=== PATIENT | male | born 1950 | race American Indian/Alaskan Native ===

== ENCOUNTER 2018-05-12 14:34 | Emergency (ER) | payer MEDICARE ==
[2018-05-12 14:44] VITALS: BP 102/59
[2018-05-12 16:12] LABS: Hematocrit 39.2 % (35.5-45.6); Hemoglobin 12.5 gm/dl (11.8-15.2); Mean Corpuscular HGB Conc 32 % (32-34); Mean Corpuscular Volume 71 fl (84-94); Platelet Count 247 K/mm3 (140-440); Red Blood Count 5.55 M/mm3 (3.65-5.03)
[2018-05-12 16:15] LABS: Mean Corpuscular Hemoglobin 23 pg (28-32)
[2018-05-12 16:21] LABS: Calcium 9.1 mg/dL (8.4-10.2)
== END 2018-05-12 15:37 | disposition left against medical advice (07) ==
LOC: ED 14:34
DX: R42 Dizziness and giddiness (principal); Z53.21 Procedure and treatment not carried out due to patient leaving prior to being seen by health care provider
CPT/HCPCS: 36415; 80048; 85027; 93005; 93010

== ENCOUNTER 2018-05-21 12:18 | Outpatient (CLI) | payer MEDICARE ==
--- NOTE | 2018-05-21 14:08 | XRay Report ---
ROUTINE CHEST, TWO VIEWS: HISTORY: Weight loss. The trachea, heart, mediastinal contour, lung roche and bony thorax are unremarkable. Mild thoracic spondylosis is noted. IMPRESSION: Unremarkable chest x-ray.
== END 2018-05-21 12:19 | disposition home or self-care (01) ==
LOC: XRAY 12:18
PROVIDERS: ATTEND Internal Medicine Gastroenterology
DX: R63.4 Abnormal weight loss (principal); M48.34 Traumatic spondylopathy, thoracic region; I10 Essential (primary) hypertension
CPT/HCPCS: 71046

== ENCOUNTER 2018-11-13 06:56 | Day surgery (SDC) | payer MEDICARE ==
--- NOTE | 2018-11-13 07:44 | Anesthesia Consultation ---
Anesthesia Consult and Med Hx Date of service: 11/13/18 - Airway Anesthetic Teeth Evaluation: Poor (multiple broken, missing teeth) ROM Head & Neck: Adequate Mental/Hyoid Distance: Adequate Mallampati Class: Class II Intubation Access Assessment: Probably Good - Pre-Operative Health Status ASA Pre-Surgery Classification: ASA3 Proposed Anesthetic Plan: MAC - Cardiovascular System Hx Hypertension: Yes Hx Coronary Artery Disease: No (cardiomyopathy EF 45-50%) - Endocrine Hx Renal Disease: Yes (CKD) Hx End Stage Renal Disease: No Hx Non-Insulin Dependent Diabetes: Yes
--- NOTE | 2018-11-13 07:45 | Anesthesia Day of Surgery ---
Anesthesia Day of Surgery - Day of Surgery Patient Examined: Yes Patient H&P Reviewed: Yes Patient is NPO: Yes Beta Blockers: Yes
[2018-11-13 08:00] LABS: Basophils # (Auto) 0.1 K/mm3 (0.0-0.1); Basophils % (Auto) 0.7 % (0.0-1.8); Eosinophils # (Auto) 0.2 K/mm3 (0.0-0.4); Hematocrit 43.2 % (35.5-45.6); Hemoglobin 13.7 gm/dl (11.8-15.2); Lymphocytes # (Auto) 1.9 K/mm3 (1.2-5.4); Lymphocytes % (Auto) 22.6 % (13.4-35.0); Mean Corpuscular HGB Conc 32 % (32-34); Mean Corpuscular Volume 70 fl (84-94); Monocytes % (Auto) 12.2 % (0.0-7.3); Platelet Count 218 K/mm3 (140-440); Red Blood Count 6.14 M/mm3 (3.65-5.03); Red Cell Distribution Width 18.7 % (13.2-15.2)
[2018-11-13] MEDS ORDERED: HURRICAINE ONE 20% TOPICAL SPRAY MM NR (08:00)
[2018-11-13] MEDS ORDERED: NACL 0.9% 500 ML 500 ML IV SCH (08:00)
[2018-11-13 08:11] LABS: INR 1.16 (0.87-1.13)
[2018-11-13 08:12] LABS: Partial Thromboplastin Time 33.5 Sec. (24.2-36.6)
[2018-11-13 08:17] LABS: Calcium 8.9 mg/dL (8.4-10.2)
[2018-11-13] MEDS ORDERED: DIPRIVAN 10 MG/ML IV ONE ×2 (08:22)
[2018-11-13] MEDS ORDERED: XYLOCAINE MPF 2% ONE (08:22)
[2018-11-13] MEDS ORDERED: VERSED IV ONE (08:33)
[2018-11-13] MEDS ORDERED: SUBLIMAZE ONE (08:34)
--- NOTE | 2018-11-13 09:15 | Short Stay Summary ---
Short Stay Documentation Date of service: 11/13/18 - History H&P: obtained from office - Allergies and Medications Current Medications: Allergies No Known Allergies Allergy (Verified 10/15/15 05:03) Home Medications Medication Instructions Recorded Confirmed Last Taken Type amLODIPine [Norvasc] 5 mg PO QDAY #30 tablet 04/15/17 11/13/18 11/12/18 Rx 5MG Carvedilol 25 mg PO QPM 11/13/18 11/13/18 11/12/18 History 25MG Carvedilol 50 mg PO QAM 11/13/18 11/13/18 11/12/18 History 25MG Furosemide [Lasix TAB] 40 mg PO DAILY 11/13/18 11/13/18 11/12/18 History 40MG Isosorbibe Dinit/Hydralazine 0.5 tab PO DAILY 11/13/18 11/13/18 11/12/18 History [Bidil Tablet] 0.5TAB Active Medications Benzocaine (Hurricaine One 20% Topical [place]) 3 spray MM PREOP NR Stop: 11/13/18 16:00 Last Admin: 11/13/18 08:48 Dose: 3 spray Documented by: Sodium Chloride (Nacl 0.9% 500 Ml) 500 mls @ 50 mls/hr IV DIRECT KARO Last Admin: 11/13/18 08:30 Dose: 50 mls/hr Documented by: - Physical exam General appearance: no acute distress Integumentary: no rash HEENT: Atraumatic Lungs: Clear to auscultation Breasts: deferred Heart: Regular rate Gastrointestinal: normal Male Genitourinary: deferred Female Genitourinary: deferred Rectal Exam: deferred Extremities: no ischemia Neurological: Normal gait - Brief post op/procedure progress note Date of procedure: 11/13/18 Pre-op diagnosis: Dilated RV and RA Post-op diagnosis: same Procedure: TOMMIE Anesthesia: MAC Findings: See report Surgeon: JOSE TAM Estimated blood loss: none Pathology: none Condition: stable - Hospital course Hospital course: Uneventful - Disposition Condition at discharge: Good Disposition: DC-01 TO HOME OR SELFCARE Short Stay Discharge Plan Activity: advance as tolerated Diet: low salt Follow up with: PRIMARY CARE, [Primary Care Provider] - 7 Days
[2018-11-13 10:46] VITALS: BP 180/109
== END 2018-11-13 12:08 | disposition home or self-care (01) ==
LOC: CATHLABREC 06:56 → EDSTATUS 07:30 → CATHLABREC 12:08
PROVIDERS: ATTEND Internal Medicine
DX: I08.3 Combined rheumatic disorders of mitral, aortic and tricuspid valves (principal); E11.22 Type 2 diabetes mellitus with diabetic chronic kidney disease; I13.0 Hypertensive heart and chronic kidney disease with heart failure and stage 1 through stage 4 chronic kidney disease, or unspecified chronic kidney disease; I50.20 Unspecified systolic (congestive) heart failure; N18.9 Chronic kidney disease, unspecified; I31.3 Pericardial effusion (noninflammatory); I42.9 Cardiomyopathy, unspecified; M19.90 Unspecified osteoarthritis, unspecified site; D64.9 Anemia, unspecified; Z79.01 Long term (current) use of anticoagulants; Z79.899 Other long term (current) drug therapy; Z83.3 Family history of diabetes mellitus; Z82.49 Family history of ischemic heart disease and other diseases of the circulatory system
CPT/HCPCS: 36415; 80048; 85025; 85610; 85730; 93312; 93320; 93325; J2704; J7040; J2250; J3010

== ENCOUNTER 2019-09-19 15:07 | Inpatient (IN) | payer MEDICARE ==
--- NOTE | 2019-09-19 16:02 | Event Note ---
ED Screening Note Date of service: 09/19/19 Time: 15:59 ED Screening Note: 69 y o male presents with difficulty breathing worsening x 2 weeks cc of burning with ua, diarhea PMH: HTN,DM, LIPid This initial assessment/diagnostic orders/clinical plan/treatment(s) is/are subject to change based on patients health status, clinical progression and re- assessment by fellow clinical providers in the ED. Further treatment and workup at subsequent clinical providers discretion. Patient/guardian urged not to elope from the ED as their condition may be serious if not clinically assessed and managed. Initial orders include: labs, main side ecal ua
--- NOTE | 2019-09-19 16:43 | XRay Report ---
CHEST 2 VIEWS INDICATION / CLINICAL INFORMATION: Dyspnea. COMPARISON: 05/21/2018 FINDINGS: SUPPORT DEVICES: None. HEART / MEDIASTINUM: No significant abnormality. LUNGS / PLEURA: Mild parenchymal opacification in the right lower lobe. No pneumothorax. ADDITIONAL FINDINGS: No significant additional findings. IMPRESSION: 1. Mild parenchymal opacity in the right lower lobe which could reflect developing pneumonia or atele ctasis. Signer Name: Otoniel Pierson MD Signed: 09/19/2019 4:39 PM Workstation Name: [id number]
[2019-09-19 17:22] LABS: Bilirubin,Urine NEG (Negative); Blood,Urine MOD (Negative); Color,Urine Amber (Yellow); Mucus,Urine FEW /HPF; RBC,Urine < 1.0 /HPF (0.0-6.0); Urobilinogen,Urine < 2.0 mg/dL (<2.0)
[2019-09-19 17:28] LABS: Hematocrit 41.2 % (35.5-45.6); Hemoglobin 13.4 gm/dl (11.8-15.2); Mean Corpuscular HGB Conc 33 % (32-34); Platelet Count 178 K/mm3 (140-440); Red Blood Count 6.02 M/mm3 (3.65-5.03)
[2019-09-19 17:33] LABS: Mean Corpuscular Volume 68 fl (84-94)
[2019-09-19 17:34] LABS: Red Cell Distribution Width 20.7 % (13.2-15.2)
[2019-09-19 17:40] LABS: INR 1.54 (0.87-1.13)
[2019-09-19 17:41] LABS: Partial Thromboplastin Time 30.7 Sec. (24.2-36.6)
[2019-09-19 17:45] LABS: Creatine Kinase MB 15.6 ng/mL (0.0-4.0)
[2019-09-19 17:48] LABS: Albumin 3.6 g/dL (3.9-5); Calcium 9.2 mg/dL (8.4-10.2)
[2019-09-19 18:38] LABS: Chol/HDL Ratio 2.03 %
[2019-09-19] MEDS ORDERED: cefTRIAXone/NS 1 GM/50 ML 1 GM/50 ML BAG IV ONE (18:53)
[2019-09-19] MEDS ORDERED: SODIUM CHLORIDE 0.9% 1000 ML IV SOLN IV ONE (18:53)
[2019-09-19] MEDS ORDERED: SODIUM CHLORIDE 0.9% 500 ML 500 ML IV ONE (19:00)
[2019-09-19 19:05] LABS: Anisocytosis 1+; Basophils % (Manual) 0 % (0.0-1.8); Eosinophils % (Manual) 0 % (0.0-4.3); Hypochromasia 1+; Total Cells Counted 100
--- NOTE | 2019-09-19 19:14 | Emergency Department Report ---
ED Shortness of Breath HPI - General Chief Complaint: Dyspnea/Respdistress Stated Complaint: DIFFICULTY BREATHING/DIARRHEA Time Seen by Provider: 09/19/19 18:50 Source: patient, old records reviewed Mode of arrival: Ambulatory Limitations: No Limitations - History of Present Illness Initial Comments: 69-year-old male with a past medical history of chronic renal insufficiency, CHF, diabetes, hypertension presents to the hospital complaining of shortness of breath and diarrhea. Shortness of breath 4 days. Positive dyspnea on exertion, orthopnea, and PND. Denies leg edema or calf tenderness. Patient recalls cough productive yellow phlegm last week which is since improving. Denies fever. Watery loose stools for the past one week with increased frequency. Mild dysuria today. Denies melena, hematochezia, hematemesis, chest pain, or abdominal pain. PMD: Dr. Zohra Garvey. [employer] on record with [facility] - Related Data Home Medications Medication Instructions Recorded Confirmed Last Taken Furosemide [Lasix TAB] 40 mg PO DAILY 11/13/18 11/13/18 11/12/18 40 MG Isosorbibe Dinit/Hydralazine 0.5 tab PO DAILY 11/13/18 11/13/18 11/12/18 [Bidil Tablet] 0.5TAB carvediloL [Carvedilol] 25 mg PO QPM 11/13/18 11/13/18 11/12/18 25 MG carvediloL [Carvedilol] 50 mg PO QAM 11/13/18 11/13/18 11/12/18 25 MG Previous Rx's Medication Instructions Recorded Last Taken Type amLODIPine 5 mg PO QDAY #30 tablet 04/15/17 11/12/18 Rx 5 MG Allergies Allergy/AdvReac Type Severity Reaction Status Date / Time No Known Allergies Allergy Verified 10/15/15 05:03 ED Review of Systems ROS: Stated complaint: DIFFICULTY BREATHING/DIARRHEA Other details as noted in HPI Comment: All other systems reviewed and negative ED Past Medical Hx - Past Medical History Previous Medical History?: Yes Hx Hypertension: Yes Hx Diabetes: Yes Hx Renal Disease: Yes (CKD) Hx Arthritis: Yes - Surgical History Past Surgical History?: Yes Additional Surgical History: 2 hernias removed on left side and rotator cuff surgery on left shoulder. - Social History Smoking Status: Never Smoker - Medications Home Medications: Home Medications Medication Instructions Recorded Confirmed Last Taken Type amLODIPine 5 mg PO QDAY #30 tablet 04/15/17 11/13/18 11/12/18 Rx 5 MG Furosemide [Lasix TAB] 40 mg PO DAILY 11/13/18 11/13/18 11/12/18 History 40 MG Isosorbibe Dinit/Hydralazine 0.5 tab PO DAILY 11/13/18 11/13/18 11/12/18 History [Bidil Tablet] 0.5TAB carvediloL [Carvedilol] 25 mg PO QPM 11/13/18 11/13/18 11/12/18 History 25 MG carvediloL [Carvedilol] 50 mg PO QAM 11/13/18 11/13/18 11/12/18 History 25 MG ED Physical Exam - General Limitations: No Limitations - Other Other exam information: General: No acute distress Head: Atraumatic Eyes: normal appearance ENT: Moist mucous membranes Neck: Normal appearance, no midline tenderness Chest: Clear to auscultation bilaterally,no tachypnea or accessory muscle use CV: Regular rate and rhythm Abdomen: Soft, normal bowel sounds, nontender, nondistended, no rebound or guarding Back: Normal inspection Extremity: Normal inspection infection, full range of motion tenderness or leg edema Neuro: Alert O x 3, no facial asymmetry, speech clear, no gross motor sensory deficit Psych: Appropriate behavior Skin: No rash ED Course Vital Signs 09/19/19 09/19/19 09/19/19 15:26 15:38 18:54 Temperature 98.7 F 98.5 F Pulse Rate 93 H 93 H 84 Respiratory 17 17 24 Rate Blood Pressure 105/68 Blood Pressure 105/68 [Right] O2 Sat by Pulse 100 100 Oximetry 09/19/19 18:57 Temperature Pulse Rate Respiratory 24 Rate Blood Pressure Blood Pressure [Right] O2 Sat by Pulse 100 Oximetry ED Medical Decision Making - Lab Data Result diagrams: 09/19/19 16:58 09/19/19 16:58 Lab Results 09/19/19 09/19/19 09/19/19 Range/Units 16:42 16:58 16:58 WBC 26.0 H (4.5-11.0) K/mm3 RBC 6.02 H (3.65-5.03) M/mm3 Hgb 13.4 (11.8-15.2) gm/dl Hct 41.2 (35.5-45.6) % MCV 68 L (84-94) fl MCH 22 L (28-32) pg MCHC 33 (32-34) % RDW 20.7 H (13.2-15.2) % Plt Count 178 (140-440) K/mm3 Add Manual Diff Complete Total Counted 100 Seg Neuts % (Manual) 85.0 H (40.0-70.0) % Band Neutrophils % 0 % Lymphocytes % (Manual) 7.0 L (13.4-35.0) % Reactive Lymphs % (Man) 0 % Monocytes % (Manual) 8.0 H (0.0-7.3) % Eosinophils % (Manual) 0 (0.0-4.3) % Basophils % (Manual) 0 (0.0-1.8) % Metamyelocytes % 0 % Myelocytes % 0 % Promyelocytes % 0 % Blast Cells % 0 % Nucleated RBC % Not Reportable Seg Neutrophils # Man 22.1 H (1.8-7.7) K/mm3 Band Neutrophils # 0.0 K/mm3 Lymphocytes # (Manual) 1.8 (1.2-5.4) K/mm3 Abs React Lymphs (Man) 0.0 K/mm3 Monocytes # (Manual) 2.1 H (0.0-0.8) K/mm3 Eosinophils # (Manual) 0.0 (0.0-0.4) K/mm3 Basophils # (Manual) 0.0 (0.0-0.1) K/mm3 Metamyelocytes # 0.0 K/mm3 Myelocytes # 0.0 K/mm3 Promyelocytes # 0.0 K/mm3 Blast Cells # 0.0 K/mm3 WBC Morphology Not Reportable Hypersegmented Neuts Not Reportable Hyposegmented Neuts Not Reportable Hypogranular Neuts Not Reportable Smudge Cells Not Reportable Toxic Granulation Not Reportable Toxic Vacuolation Not Reportable Dohle Bodies Not Reportable Pelger-Huet Anomaly Not Reportable Charli Rods Not Reportable Platelet Estimate Not Reportable Clumped Platelets Not Reportable Plt Clumps, EDTA Not Reportable Large Platelets Not Reportable Giant Platelets Not Reportable Platelet Satelliting Not Reportable Plt Morphology Comment Not Reportable RBC Morphology Not Reportable Dimorphic RBCs Not Reportable Polychromasia Not Reportable Hypochromasia 1+ Poikilocytosis Not Reportable Anisocytosis 1+ Microcytosis 1+ Macrocytosis Not Reportable Spherocytes Not Reportable Pappenheimer Bodies Not Reportable Sickle Cells Not Reportable Target Cells Not Reportable Tear Drop Cells Not Reportable Ovalocytes Not Reportable Helmet Cells Not Reportable Edouard-Laona Bodies Not Reportable Henderson Rings Not Reportable [place] Cells Not Reportable Bite Cells Not Reportable Crenated Cell Not Reportable Elliptocytes Not Reportable Acanthocytes (Spur) Not Reportable Rouleaux Not Reportable Hemoglobin C Crystals Not Reportable Schistocytes Not Reportable Malaria parasites Not Reportable Otis Bodies Not Reportable Hem Pathologist Commnt No PT 18.3 H (12.2-14.9) Sec. INR 1.54 H (0.87-1.13) APTT 30.7 (24.2-36.6) Sec. D-Dimer 135.00 (0-234) ng/mlDDU Sodium (137-145) mmol/L Potassium (3.6-5.0) mmol/L Chloride (98-107) mmol/L Carbon Dioxide (22-30) mmol/L Anion Gap mmol/L BUN (9-20) mg/dL Creatinine (0.8-1.5) mg/dL Estimated GFR ml/min BUN/Creatinine Ratio % Glucose (75-100) mg/dL Calcium (8.4-10.2) mg/dL Total Bilirubin (0.1-1.2) mg/dL AST (5-40) units/L ALT (7-56) units/L Alkaline Phosphatase (35-129) units/L Total Creatine Kinase (55-170) units/L CK-MB (CK-2) (0.0-4.0) ng/mL CK-MB (CK-2) Rel Index (0-4) Troponin T (0.00-0.029) ng/mL Total Protein (6.3-8.2) g/dL Albumin (3.9-5) g/dL Albumin/Globulin Ratio % Triglycerides (2-149) mg/dL Cholesterol (50-199) mg/dL LDL Cholesterol Direct (50-130) mg/dL HDL Cholesterol (40-59) mg/dL Cholesterol/HDL Ratio % Urine Color Ella (Yellow) Urine Turbidity Cloudy (Clear) Urine pH 5.0 (5.0-7.0) Ur Specific Drury 1.016 (1.003-1.030) Urine Protein 100 mg/dl (Negative) mg/dL Urine Glucose (UA) Neg (Negative) mg/dL Urine Ketones Neg (Negative) mg/dL Urine Blood Mod (Negative) Urine Nitrite Neg (Negative) Urine Bilirubin Neg (Negative) Urine Urobilinogen < 2.0 (<2.0) mg/dL Ur Leukocyte Esterase Lg (Negative) Urine WBC (Auto) 4.0 (0.0-6.0) /HPF Urine RBC (Auto) < 1.0 (0.0-6.0) /HPF U Epithel Cells (Auto) < 1.0 (0-13.0) /HPF Urine Mucus Few /HPF 09/19/19 09/19/19 Range/Units 16:58 16:58 WBC (4.5-11.0) K/mm3 RBC (3.65-5.03) M/mm3 Hgb (11.8-15.2) gm/dl Hct (35.5-45.6) % MCV (84-94) fl MCH (28-32) pg MCHC (32-34) % RDW (13.2-15.2) % Plt Count (140-440) K/mm3 Add Manual Diff Total Counted Seg Neuts % (Manual) (40.0-70.0) % Band Neutrophils % % Lymphocytes % (Manual) (13.4-35.0) % Reactive Lymphs % (Man) % Monocytes % (Manual) (0.0-7.3) % Eosinophils % (Manual) (0.0-4.3) % Basophils % (Manual) (0.0-1.8) % Metamyelocytes % % Myelocytes % % Promyelocytes % % Blast Cells % % Nucleated RBC % Seg Neutrophils # Man (1.8-7.7) K/mm3 Band Neutrophils # K/mm3 Lymphocytes # (Manual) (1.2-5.4) K/mm3 Abs React Lymphs (Man) K/mm3 Monocytes # (Manual) (0.0-0.8) K/mm3 Eosinophils # (Manual) (0.0-0.4) K/mm3 Basophils # (Manual) (0.0-0.1) K/mm3 Metamyelocytes # K/mm3 Myelocytes # K/mm3 Promyelocytes # K/mm3 Blast Cells # K/mm3 WBC Morphology Hypersegmented Neuts Hyposegmented Neuts Hypogranular Neuts Smudge Cells Toxic Granulation Toxic Vacuolation Dohle Bodies Pelger-Huet Anomaly Charli Rods Platelet Estimate Clumped Platelets Plt Clumps, EDTA Large Platelets Giant Platelets Platelet Satelliting Plt Morphology Comment RBC Morphology Dimorphic RBCs Polychromasia Hypochromasia Poikilocytosis Anisocytosis Microcytosis Macrocytosis Spherocytes Pappenheimer Bodies Sickle Cells Target Cells Tear Drop Cells Ovalocytes Helmet Cells Edouard-Laona Bodies Henderson Rings Edgardo Cells Bite Cells Crenated Cell Elliptocytes Acanthocytes (Spur) Rouleaux Hemoglobin C Crystals Schistocytes Malaria parasites Otis Bodies Hem Pathologist Commnt PT (12.2-14.9) Sec. INR (0.87-1.13) APTT (24.2-36.6) Sec. D-Dimer (0-234) ng/mlDDU Sodium 136 L (137-145) mmol/L Potassium 4.8 (3.6-5.0) mmol/L Chloride 107.9 H (98-107) mmol/L Carbon Dioxide 15 L (22-30) mmol/L Anion Gap 18 mmol/L BUN 55 H (9-20) mg/dL Creatinine 2.9 H (0.8-1.5) mg/dL Estimated GFR 26 ml/min BUN/Creatinine Ratio 19 % Glucose 193 H (75-100) mg/dL Calcium 9.2 (8.4-10.2) mg/dL Total Bilirubin 0.80 (0.1-1.2) mg/dL AST 35 (5-40) units/L ALT 46 (7-56) units/L Alkaline Phosphatase 96 (35-129) units/L Total Creatine Kinase 1323 H (55-170) units/L CK-MB (CK-2) 15.6 H (0.0-4.0) ng/mL CK-MB (CK-2) Rel Index 1.1 (0-4) Troponin T 0.234 H* (0.00-0.029) ng/mL Total Protein 8.0 (6.3-8.2) g/dL Albumin 3.6 L (3.9-5) g/dL Albumin/Globulin Ratio 0.8 % Triglycerides 82 (2-149) mg/dL Cholesterol 108 (50-199) mg/dL LDL Cholesterol Direct 45 L (50-130) mg/dL HDL Cholesterol 53 (40-59) mg/dL Cholesterol/HDL Ratio 2.03 % Urine Color (Yellow) Urine Turbidity (Clear) Urine pH (5.0-7.0) Ur Specific [place] (1.003-1.030) Urine Protein (Negative) mg/dL Urine Glucose (UA) (Negative) mg/dL Urine Ketones (Negative) mg/dL Urine Blood (Negative) Urine Nitrite (Negative) Urine Bilirubin (Negative) Urine Urobilinogen (<2.0) mg/dL Ur Leukocyte Esterase (Negative) Urine WBC (Auto) (0.0-6.0) /HPF Urine RBC (Auto) (0.0-6.0) /HPF U Epithel Cells (Auto) (0-13.0) /HPF Urine Mucus /HPF - EKG Data -: EKG Interpreted by Me (RBBB, JENAROB) EKG shows normal: sinus rhythm Rate: normal - EKG Data When compared to previous EKG there are: no significant change - Radiology Data Radiology results: report reviewed CHEST 2 VIEWS INDICATION / CLINICAL INFORMATION: Dyspnea. COMPARISON: 05/21/2018 FINDINGS: SUPPORT DEVICES: None. HEART / MEDIASTINUM: No significant abnormality. LUNGS / PLEURA: Mild parenchymal opacification in the right lower lobe. No pneumothorax. ADDITIONAL FINDINGS: No significant additional findings. IMPRESSION: 1. Mild parenchymal opacity in the right lower lobe which could reflect developing pneumonia or atelectasis. - Medical Decision Making chest x-ray reveals infiltrate with leukocytosis. Patient treated with Rocephin and azithromycin for pneumonia. He is to have a metabolic anion gap acidosis lactic acid pending at disposition. 30 mL per KG bolus of normal saline not given because pt has hx of chf. 500ml initiated and additional normal saline will be ordered as needed. Patient has slightly worsening renal function likely secondary to dehydration. - Differential Diagnosis pneumonia, bronchitis, viral syndrome, CHF Critical Care Time: No Critical care attestation.: If time is entered above; I have spent that time in minutes in the direct care of this critically ill patient, excluding procedure time. ED Disposition Clinical Impression: RLL pneumonia, Chronic renal insufficiency, Acute diarrhea, Dehydration, CHF (congestive heart failure), Leukocytosis Disposition: DC-09 OP ADMIT IP TO THIS HOSP Is pt being admited?: Yes Condition: Stable Time of Disposition: 19:15 (Dr de los santos/ request admit to dr Sinclair)
[2019-09-19] MEDS ORDERED: AZITHROMYCIN 500 MG in SODIUM CHLORIDE 0.9% 250ML 250 ML IV ONE (19:30)
[2019-09-19] MEDS ORDERED: SODIUM CHLORIDE 0.9% 1000 ML 1,000 ML ONE (19:50)
[2019-09-19] MEDS ORDERED: ONDANSETRON 4 MG/2 ML INJ IV PRN (22:28)
[2019-09-19] MEDS ORDERED: ACETAMINOPHEN 325 MG TAB PO PRN (22:28)
[2019-09-19] MEDS ORDERED: MAGNESIUM HYDROXIDE (MOM) ORAL LIQD UDC PO PRN (22:28)
[2019-09-19] MEDS: SODIUM CHLORIDE 0.9% 1000 ML 1,000 ML IV SCH (23:16)
[2019-09-19 23:19] LABS: INR 1.54 (0.87-1.13)
[2019-09-19 23:20] LABS: Partial Thromboplastin Time 34.9 Sec. (24.2-36.6)
[2019-09-19] MEDS: HEPARIN 5,000 UNIT/1 ML VIAL SUB-Q SCH (23:27)
--- NOTE | 2019-09-20 02:02 | History and Physical Report ---
History of Present Illness Date of examination: 09/19/19 Date of admission: 09/19/19 19:16 Chief complaint: Shortness of breath History of present illness: 69-year-old male presenting to the emergency room today complaining of shortness of breath, nausea and vomiting, and diarrhea. His this has been ongoing for about 1 week. He has also had some associated cough productive of some yellowish sputum. He denies any chest pain, denies any fever, he denies any rec ent travel and no sick contacts. His work-up in the emergency room reveals right lower lobe pneumonia. He had a leukocytosis of about 26, he also had an elevated troponin but his EKG was within normal limits. He was subsequently started on empiric IV antibiotics. Past History Past Medical History: diabetes, heart failure, hypertension, hyperlipidemia Past Surgical History: Other (Left rotator cuff surgery, left inguinal hernia gaitan rgery) Social history: no significant social history Family history: CAD (Brother, sister and mother have history of coronary artery disease,), diabetes (1 of the sisters has diabetes mellitus) Medications and Allergies Allergies Allergy/AdvReac Type Severity Reaction Status Date / Time No Known Allergies Allergy Verified 10/15/15 05:03 Home Medications Medication Instructions Recorded Confirmed Last Taken Type amLODIPine 5 mg PO QDAY #30 tablet 04/15/17 09/19/19 11/12/18 Rx 5 MG Furosemide [Lasix TAB] 40 mg PO DAILY 11/13/18 09/19/19 11/12/18 History 40 MG Isosorbibe Dinit/Hydralazine 0.5 tab PO DAILY 11/13/18 09/19/19 11/12/18 History [Bidil Tablet] 0.5TAB carvediloL [Carvedilol] 25 mg PO QPM 11/13/18 09/19/19 11/12/18 History 25 MG carvediloL [Carvedilol] 50 mg PO QAM 11/13/18 09/19/19 11/12/18 History 25 MG Active Meds: Active Medications Acetaminophen (Tylenol) 650 mg PO Q4H PRN PRN Reason: Pain MILD(1-3)/Fever >100.5/MANCUSO Heparin Sodium (Porcine) (Heparin) 5,000 unit SUB-Q Q8HR KARO Last Admin: 09/19/19 23:27 Dose: 5,000 unit Documented by: Ceftriaxone Sodium (Rocephin/Ns 2 Gm/100 Ml) 2 gm in 100 mls @ 200 mls/hr IV Q24HR KARO; Protocol Azithromycin 500 mg/ Sodium (Chloride) 250 mls @ 250 mls/hr IV Q24HR KARO; Protocol Sodium Chloride (Nacl 0.9% 1000 Ml) 1,000 mls @ 75 mls/hr IV DIRECT KARO Last Admin: 09/19/19 23:16 Dose: 75 mls/hr Documented by: Magnesium Hydroxide (Milk Of Magnesia) 30 ml PO Q4H PRN PRN Reason: Constipation Ondansetron HCl (Zofran) 4 mg IV Q8H PRN PRN Reason: Nausea And Vomiting Sodium Chloride (Sodium Chloride Flush Syringe 10 Ml) 10 ml IV BID KARO Sodium Chloride (Sodium Chloride Flush Syringe 10 Ml) 10 ml IV PRN PRN PRN Reason: LINE FLUSH Review of Systems Respiratory: cough (Productive of yellowish sputum) Gastrointestinal: nausea, vomiting, diarrhea Exam - Constitutional Vitals: Temp Pulse Resp BP Pulse Ox 98.8 F 93 H 18 119/76 97 09/19/19 21:25 09/19/19 21:25 09/19/19 21:25 09/19/19 21:25 09/19/19 21:25 General appearance: Present: no acute distress, mild distress - EENT Eyes: Present: PERRL, EOM intact ENT: hearing intact, clear oral mucosa, dentition normal - Neck Neck: Present: supple, normal ROM - Respiratory Respiratory effort: normal Respiratory: right: diminished - Cardiovascular Rhythm: regular Heart Sounds: Present: S1 & S2 - Extremities Extremities: no ischemia, pulses intact, pulses symmetrical, No edema, Full ROM Peripheral Pulses: within normal limits - Abdominal General gastrointestinal: Present: soft, non-tender, non-distended - Integumentary Integumentary: Present: clear, warm, dry - Psychiatric Psychiatric: appropriate mood/affect, intact judgment & insight, cooperative - Neurologic Neurologic: CNII-XII intact, moves all extremities Results - Labs CBC & Chem 7: 09/20/19 03:49 09/20/19 03:49 Labs: Abnormal lab results 09/19/19 09/19/19 09/19/19 Range/Units 16:58 16:58 16:58 WBC 26.0 H (4.5-11.0) K/mm3 RBC 6.02 H (3.65-5.03) M/mm3 MCV 68 L (84-94) fl MCH 22 L (28-32) pg RDW 20.7 H (13.2-15.2) % Seg Neuts % (Manual) 85.0 H (40.0-70.0) % Lymphocytes % (Manual) 7.0 L (13.4-35.0) % Monocytes % (Manual) 8.0 H (0.0-7.3) % Seg Neutrophils # Man 22.1 H (1.8-7.7) K/mm3 Monocytes # (Manual) 2.1 H (0.0-0.8) K/mm3 PT 18.3 H (12.2-14.9) Sec. INR 1.54 H (0.87-1.13) Sodium 136 L (137-145) mmol/L Chloride 107.9 H (98-107) mmol/L Carbon Dioxide 15 L (22-30) mmol/L BUN 55 H (9-20) mg/dL Creatinine 2.9 H (0.8-1.5) mg/dL Glucose 193 H (75-100) mg/dL Total Creatine Kinase (55-170) units/L CK-MB (CK-2) (0.0-4.0) ng/mL Troponin T 0.234 H* (0.00-0.029) ng/mL Albumin 3.6 L (3.9-5) g/dL LDL Cholesterol Direct 45 L (50-130) mg/dL 09/19/19 09/19/19 Range/Units 16:58 22:45 WBC (4.5-11.0) K/mm3 RBC (3.65-5.03) M/mm3 MCV (84-94) fl MCH (28-32) pg RDW (13.2-15.2) % Seg Neuts % (Manual) (40.0-70.0) % Lymphocytes % (Manual) (13.4-35.0) % Monocytes % (Manual) (0.0-7.3) % Seg Neutrophils # Man (1.8-7.7) K/mm3 Monocytes # (Manual) (0.0-0.8) K/mm3 PT 18.3 H (12.2-14.9) Sec. INR 1.54 H (0.87-1.13) Sodium (137-145) mmol/L Chloride (98-107) mmol/L Carbon Dioxide (22-30) mmol/L BUN (9-20) mg/dL Creatinine (0.8-1.5) mg/dL Glucose (75-100) mg/dL Total Creatine Kinase 1323 H (55-170) units/L CK-MB (CK-2) 15.6 H (0.0-4.0) ng/mL Troponin T (0.00-0.029) ng/mL Albumin (3.9-5) g/dL LDL Cholesterol Direct (50-130) mg/dL Assessment and Plan - Patient Problems (1) RLL pneumonia Current Visit: Yes Status: Acute Plan to address problem: Patient started on empiric IV antibiotics. Will await blood culture results. (2) Dehydration Current Visit: Yes Status: Acute Plan to address problem: He is placed on IV fluid normal saline. (3) Leukocytosis Current Visit: Yes Status: Acute Plan to address problem: Possibly secondary to the pneumonia. Will monitor CBC. (4) CHF (congestive heart failure) Current Visit: Yes Status: Acute Plan to address problem: Stable. We will continue patient on his routine home medications. (5) Chronic renal insufficiency Current Visit: Yes Status: Acute Plan to address problem: Will monitor BUN and creatinine. (6) Elevated troponin Current Visit: No Status: Acute Plan to address problem: Review of patient's record indicates chronically elevated troponin. EKG is within normal limits and he denies any chest pain. (7) DVT prophylaxis Current Visit: Yes Status: Acute Plan to address problem: Patient placed on subcutaneous heparin. (8) Full code status Current Visit: Yes Status: Acute
[2019-09-20 04:56] LABS: Hematocrit 41.5 % (35.5-45.6); Hemoglobin 13.2 gm/dl (11.8-15.2); Mean Corpuscular HGB Conc 32 % (32-34); Platelet Count 185 K/mm3 (140-440); Red Blood Count 6.04 M/mm3 (3.65-5.03)
[2019-09-20 05:06] LABS: Mean Corpuscular Volume 69 fl (84-94); Red Cell Distribution Width 20.3 % (13.2-15.2)
[2019-09-20] MEDS: HEPARIN 5,000 UNIT/1 ML VIAL SUB-Q SCH ×3 (05:54→21:17)
[2019-09-20 06:49] LABS: Basophils % (Manual) 0 % (0.0-1.8); Eosinophils % (Manual) 0 % (0.0-4.3); Total Cells Counted 100
[2019-09-20 06:50] LABS: Anisocytosis 1+; Poikilocytosis Few
[2019-09-20 06:51] LABS: Platelet Estimate Consistent w Auto
[2019-09-20] MEDS: cefTRIAXone/NS 2 GM/100 ML 2 GM/100 ML BAG IV SCH (10:09)
[2019-09-20] MEDS: AZITHROMYCIN 500 MG in SODIUM CHLORIDE 0.9% 250ML 250 ML IV SCH (10:16)
[2019-09-20] MEDS: SODIUM CHLORIDE 0.9% 1000 ML 1,000 ML IV SCH (10:16)
--- NOTE | 2019-09-20 13:38 | Progress Note ---
Assessment and Plan /RLL pneumonia Patient started on empiric IV antibiotics. Will await blood culture results. /Dehydration He is placed on IV fluid normal saline. / Leukocytosis with SIRS and without any organ damage Possibly secondary to the pneumonia. Will monitor CBC. / CHF (congestive heart failure) Ef 45- 50% Stable. We will continue patient on his routine home medications. /Chronic renal insufficiency Continue IV fluid Will monitor BUN and creatinine. / Elevated troponin Review of patient's record indicates chronically elevated troponin. EKG is within normal limits and he denies any chest pain. / DVT prophylaxis Patient placed on subcutaneous heparin. / Full code status Brief History: 69-year-old male presenting to the emergency room today complaining of shortness of breath, nausea and vomiting, and diarrhea. His this has been ongoing for about 1 week. He has also had some associated cough productive of some yellowish sputum. His work-up in the emergency room reveals right lower lobe pneumonia. He had a leukocytosis of about 26, he also had an elevated troponin but his EKG was within normal limits. He was subsequently started on empiric IV antibiotics. Hospitalist Physical exam: GENERAL: well-developed and well-nourished AAM lying on bed appeared to be in no discomfort. HEENT: Normocephalic. Atraumatic. No conjunctival congestion or icterus. Patient has moist mucous membranes. NECK: Supple. Trachea midline. CHEST/LUNGS: Clear to auscultated bilaterally, breathing nonlabored. No wheezes crackles or rhonchi. HEART/CARDIOVASCULAR: Regular in rate and rhythm. S1 and S2 positive. ABDOMEN: Abdomen is soft, nontender. Patient has normal bowel sounds. SKIN: There is no rash. Warm and dry. NEURO: No focal motor deficit. Follows command. MUSCULOSKELETAL: No joint effusion or tenderness. EXTRIMITY: No edema, no cyanosis or clubbing. PSYCH: Cooperative. Subjective Date of service: 09/20/19 Interval history: Patient seen and examined. Medical records and medication list reviewed. No acute event overnight noted by the RN. Patient denies any chest pain but has minimal difficulty breathing with exertion. Patient is tolerating diet. Discussed plan of care at bedside with patient. Objective - Constitutional Vitals: Vital Signs - 12hr 09/20/19 09/20/19 07:36 10:00 Temperature 100.5 F H Pulse Rate 99 H 112 H Respiratory 18 Rate Blood Pressure 105/50 O2 Sat by Pulse 96 Oximetry - Labs CBC & Chem 7: 09/21/19 11:59 09/21/19 03:42 Labs: Abnormal lab results 09/19/19 09/19/19 09/19/19 Range/Units 16:58 16:58 16:58 WBC 26.0 H (4.5-11.0) K/mm3 RBC 6.02 H (3.65-5.03) M/mm3 MCV 68 L (84-94) fl MCH 22 L (28-32) pg RDW 20.7 H (13.2-15.2) % Seg Neuts % (Manual) 85.0 H (40.0-70.0) % Lymphocytes % (Manual) 7.0 L (13.4-35.0) % Monocytes % (Manual) 8.0 H (0.0-7.3) % Seg Neutrophils # Man 22.1 H (1.8-7.7) K/mm3 Monocytes # (Manual) 2.1 H (0.0-0.8) K/mm3 PT 18.3 H (12.2-14.9) Sec. INR 1.54 H (0.87-1.13) Sodium 136 L (137-145) mmol/L Chloride 107.9 H (98-107) mmol/L Carbon Dioxide 15 L (22-30) mmol/L BUN 55 H (9-20) mg/dL Creatinine 2.9 H (0.8-1.5) mg/dL Glucose 193 H (75-100) mg/dL POC Glucose (70-105) Total Creatine Kinase (55-170) units/L CK-MB (CK-2) (0.0-4.0) ng/mL Troponin T 0.234 H* (0.00-0.029) ng/mL Albumin 3.6 L (3.9-5) g/dL LDL Cholesterol Direct 45 L (50-130) mg/dL 09/19/19 09/19/19 09/20/19 Range/Units 16:58 22:45 03:49 WBC 24.2 H (4.5-11.0) K/mm3 RBC 6.04 H (3.65-5.03) M/mm3 MCV 69 L (84-94) fl MCH 22 L (28-32) pg RDW 20.3 H (13.2-15.2) % Seg Neuts % (Manual) 84.0 H (40.0-70.0) % Lymphocytes % (Manual) 6.0 L (13.4-35.0) % Monocytes % (Manual) 8.0 H (0.0-7.3) % Seg Neutrophils # Man 20.3 H (1.8-7.7) K/mm3 Monocytes # (Manual) 1.9 H (0.0-0.8) K/mm3 PT 18.3 H (12.2-14.9) Sec. INR 1.54 H (0.87-1.13) Sodium (137-145) mmol/L Chloride (98-107) mmol/L Carbon Dioxide (22-30) mmol/L BUN (9-20) mg/dL Creatinine (0.8-1.5) mg/dL Glucose (75-100) mg/dL POC Glucose (70-105) Total Creatine Kinase 1323 H (55-170) units/L CK-MB (CK-2) 15.6 H (0.0-4.0) ng/mL Troponin T (0.00-0.029) ng/mL Albumin (3.9-5) g/dL LDL Cholesterol Direct (50-130) mg/dL 09/20/19 09/20/19 09/20/19 Range/Units 03:49 07:44 11:25 WBC (4.5-11.0) K/mm3 RBC (3.65-5.03) M/mm3 MCV (84-94) fl MCH (28-32) pg RDW (13.2-15.2) % Seg Neuts % (Manual) (40.0-70.0) % Lymphocytes % (Manual) (13.4-35.0) % Monocytes % (Manual) (0.0-7.3) % Seg Neutrophils # Man (1.8-7.7) K/mm3 Monocytes # (Manual) (0.0-0.8) K/mm3 PT (12.2-14.9) Sec. INR (0.87-1.13) Sodium (137-145) mmol/L Chloride 110.2 H (98-107) mmol/L Carbon Dioxide 15 L (22-30) mmol/L BUN 56 H (9-20) mg/dL Creatinine 2.9 H (0.8-1.5) mg/dL Glucose 121 H (75-100) mg/dL POC Glucose 112 H 179 H (70-105) Total Creatine Kinase (55-170) units/L CK-MB (CK-2) (0.0-4.0) ng/mL Troponin T (0.00-0.029) ng/mL Albumin (3.9-5) g/dL LDL Cholesterol Direct (50-130) mg/dL
[2019-09-21] MEDS: SODIUM CHLORIDE 0.9% 1000 ML 1,000 ML IV SCH ×2 (02:58→17:33)
[2019-09-21 05:11] LABS: Calcium 8.5 mg/dL (8.4-10.2)
[2019-09-21] MEDS: HEPARIN 5,000 UNIT/1 ML VIAL SUB-Q SCH ×3 (05:54→21:35)
[2019-09-21] MEDS: ISOSORB DINIT/HYDRALAZINE 20-37.5MG TAB PO SCH (09:57)
[2019-09-21] MEDS: amLODIPine 5 MG TAB PO SCH ×2 (09:58→14:25)
[2019-09-21] MEDS: cefTRIAXone/NS 2 GM/100 ML 2 GM/100 ML BAG IV SCH (09:58)
[2019-09-21] MEDS: AZITHROMYCIN 500 MG in SODIUM CHLORIDE 0.9% 250ML 250 ML IV SCH (10:08)
[2019-09-21 12:47] LABS: Hematocrit 35.3 % (35.5-45.6); Hemoglobin 11.2 gm/dl (11.8-15.2); Mean Corpuscular HGB Conc 32 % (32-34); Platelet Count 180 K/mm3 (140-440); Red Blood Count 5.13 M/mm3 (3.65-5.03)
[2019-09-21 12:59] LABS: Mean Corpuscular Volume 69 fl (84-94); Red Cell Distribution Width 20.5 % (13.2-15.2)
--- NOTE | 2019-09-21 13:52 | Progress Note ---
Assessment and Plan /RLL pneumonia Patient started on empiric IV antibiotics. negative blood Cx Will treat for PNA for total one week /Dehydration He is placed on IV fluid normal saline. Monitor / Leukocytosis with SIRS and without any organ damage Possibly secondary to the pneumonia. Will monitor CBC. / CHF (congestive heart failure) Ef 45- 50% Stable. We will continue patient on his routine home medications. /AMELIE on Chronic renal insufficiency, POA likely vasomotor nephropathy from dehydration, Continue IV fluid Will monitor BUN and creatinine. has out f/u with cafeteria associate /HTN, stable - cont home meds, hold coreg and diuretics for now / Elevated troponin Review of patient's record indicates chronically elevated troponin. EKG is wi thin normal limits and he denies any chest pain. / DVT prophylaxis Patient placed on subcutaneous heparin. / Full code status Disposition: when clinically stable - when WBC trends down and afebrile Brief History: 69-year-old male presenting to the emergency room today complaining of shortness of breath, nausea and vomiting, and diarrhea. His this has been ongoing for about 1 week. He has also had some associated cough productive of some yellowish sputum. His work-up in the emergency room reveals right lower lobe pneumonia. He had a leukocytosis of about 26, he also had an elevated troponin but his EKG was within normal limits. He was subsequently started on empiric IV antibiotics. Hospitalist Physical exam: GENERAL: well-developed and well-nourished AAM lying on bed appeared to be in no discomfort. HEENT: Normocephalic. Atraumatic. No conjunctival congestion or icterus. Patient has moist mucous membranes. NECK: Supple. Trachea midline. CHEST/LUNGS: Clear to auscultated bilaterally, breathing nonlabored. No wheezes crackles or rhonchi. HEART/CARDIOVASCULAR: Regular in rate and rhythm. S1 and S2 positive. ABDOMEN: Abdomen is soft, nontender. Patient has normal bowel sounds. SKIN: There is no rash. Warm and dry. NEURO: No focal motor deficit. Follows command. MUSCULOSKELETAL: No joint effusion or tenderness. EXTRIMITY: No edema, no cyanosis or clubbing. PSYCH: Cooperative. Subjective Date of service: 09/21/19 Interval history: Patient seen and examined. Medical records and medication list reviewed. No acute event overnight noted by the RN. Patient denies any chest pain but has difficulty breathing with exertion. Patient is tolerating diet. Discussed plan of care at bedside with patient. Objective - Constitutional Vitals: Vital Signs - 12hr 09/21/19 09/21/19 02:22 07:35 Temperature 98.8 F 98.5 F Pulse Rate 82 79 Respiratory 18 18 Rate Blood Pressure 109/70 Blood Pressure 131/75 [Right] O2 Sat by Pulse 98 96 Oximetry - Labs CBC & Chem 7: 09/22/19 04:25 09/22/19 04:25 Labs: Abnormal lab results 09/20/19 09/20/19 09/21/19 Range/Units 16:41 20:47 03:42 WBC (4.5-11.0) K/mm3 RBC (3.65-5.03) M/mm3 Hgb (11.8-15.2) gm/dl Hct (35.5-45.6) % MCV (84-94) fl MCH (28-32) pg RDW (13.2-15.2) % Chloride 110.9 H (98-107) mmol/L Carbon Dioxide 13 L (22-30) mmol/L BUN 47 H (9-20) mg/dL Creatinine 2.5 H (0.8-1.5) mg/dL Glucose 74 L (75-100) mg/dL POC Glucose 139 H 137 H (70-105) 09/21/19 09/21/19 Range/Units 11:34 11:59 WBC 15.1 H (4.5-11.0) K/mm3 RBC 5.13 H (3.65-5.03) M/mm3 Hgb 11.2 L (11.8-15.2) gm/dl Hct 35.3 L D (35.5-45.6) % MCV 69 L (84-94) fl MCH 22 L (28-32) pg RDW 20.5 H (13.2-15.2) % Chloride (98-107) mmol/L Carbon Dioxide (22-30) mmol/L BUN (9-20) mg/dL Creatinine (0.8-1.5) mg/dL Glucose (75-100) mg/dL POC Glucose 146 H (70-105)
[2019-09-22 05:16] LABS: Basophils % (Auto) 0.3 % (0.0-1.8); Eosinophils # (Auto) 0.1 K/mm3 (0.0-0.4); Eosinophils % (Auto) 1.2 % (0.0-4.3); Hematocrit 36.1 % (35.5-45.6); Hemoglobin 11.5 gm/dl (11.8-15.2); Lymphocytes # (Auto) 1.4 K/mm3 (1.2-5.4); Lymphocytes % (Auto) 11.2 % (13.4-35.0); Mean Corpuscular HGB Conc 32 % (32-34); Mean Corpuscular Volume 68 fl (84-94); Monocytes # (Auto) 1.2 K/mm3 (0.0-0.8); Monocytes % (Auto) 10.2 % (0.0-7.3); Platelet Count 186 K/mm3 (140-440); Red Blood Count 5.27 M/mm3 (3.65-5.03)
[2019-09-22 05:17] LABS: Red Cell Distribution Width 20.4 % (13.2-15.2)
[2019-09-22 05:28] LABS: Calcium 8.2 mg/dL (8.4-10.2)
[2019-09-22] MEDS: SODIUM CHLORIDE 0.9% 1000 ML 1,000 ML IV SCH (05:37)
[2019-09-22] MEDS: HEPARIN 5,000 UNIT/1 ML VIAL SUB-Q SCH ×2 (05:37→15:48)
[2019-09-22] MEDS: ISOSORB DINIT/HYDRALAZINE 20-37.5MG TAB PO SCH (08:59)
[2019-09-22] MEDS: cefTRIAXone/NS 2 GM/100 ML 2 GM/100 ML BAG IV SCH (09:00)
[2019-09-22] MEDS: amLODIPine 5 MG TAB PO SCH (09:00)
[2019-09-22 09:01] VITALS: BP 126/72
[2019-09-22] MEDS: AZITHROMYCIN 500 MG in SODIUM CHLORIDE 0.9% 250ML 250 ML IV SCH (09:01)
--- NOTE | 2019-09-22 14:56 | Discharge Summary ---
Providers - Providers Date of Admission: 09/19/19 19:16 Date of discharge: 09/22/19 Attending physician: YUNI DA SILVA Primary care physician: ACCOUNTING ADVISORY SERVICES MANAGER Hospitalization Condition: Stable Pertinent studies: CXR : Right lower lobe PNA. Hospital course: 69-year-old male presenting to the emergency room today complaining of shortness of breath, nausea and vomiting, and diarrhea. His this has been ongoing for about 1 week. He has also had some associated cough productive of some yellowish sputum. His work-up in the emergency room reveals right lower lobe pneumonia. He had a leukocytosis of about 26, he also had an elevated troponin but his EKG was within normal limits. He was subsequently started on empiric IV antibiotics for PNA and iv fluid for AMELIE. His symptom improved with medical Mx, he was then discharged home in stable condition. Discharge Diagnosis and Mx: /RLL pneumonia Patient started on empiric IV antibiotics. negative blood Cx Will treat for PNA for total one week as outpt /Dehydration He was placed on IV fluid normal saline. / Leukocytosis with SIRS and without any organ damage Possibly secondary to the pneumonia. Will monitor CBC. / CHF (congestive heart failure) Ef 45- 50%, Stable. We will continue patient on his routine home medications. /AMELIE on Chronic renal insufficiency, POA likely vasomotor nephropathy from dehydration, Continue IV fluid Monitored BUN and creatinine. 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 EKG is within normal limits and he denies any chest pain. / DVT prophylaxis Patient placed on subcutaneous heparin. / Full code status Disposition: when clinically stable - when WBC trends down and afebrile Hospitalist Physical exam: GENERAL: well-developed and well-nourished AAM lying on bed appeared to be in no discomfort. HEENT: Normocephalic. Atraumatic. No conjunctival congestion or icterus. Patient has moist mucous membranes. NECK: Supple. Trachea midline. CHEST/LUNGS: Clear to auscultated bilaterally, breathing nonlabored. No wheezes crackles or rhonchi. HEART/CARDIOVASCULAR: Regular in rate and rhythm. S1 and S2 positive. ABDOMEN: Abdomen is soft, nontender. Patient has normal bowel sounds. SKIN: There is no rash. Warm and dry. NEURO: No focal motor deficit. Follows command. MUSCULOSKELETAL: No joint effusion or tenderness. EXTRIMITY: No edema, no cyanosis or clubbing. PSYCH: Cooperative. Disposition: DC-01 TO HOME OR SELFCARE Time spent for discharge: 34 minutes Core Measure Documentation - Palliative Care Palliative Care/ Comfort Measures: Not Applicable - Core Measures Any of the following diagnoses?: none Exam - Constitutional Vitals: Temp Pulse Resp BP Pulse Ox 98.2 F 80 19 126/72 98 09/22/19 07:13 09/22/19 09:21 09/22/19 07:13 09/22/19 08:59 09/22/19 09:21 Plan Activity: advance as tolerated Weight Bearing Status: Weight Bear as Tolerated Diet: renal Special Instructions: restrict fluid intake to Additional Instructions: f/u with nephrology in one week. Follow up with: PRIMARY CARE, [Primary Care Provider] - 7 Days Prescriptions: Amoxicillin/Potassium Clav [Augmentin 875-125 Tablet] 1 each PO BID #8 tablet
== END 2019-09-22 15:40 | disposition home or self-care (01) | DRG 193 ==
LOC: ED 15:07 → 2B-ACE 19:16
PROVIDERS: ADMIT Internal Medicine Geriatric Medicine; ATTEND Internal Medicine
DX: J18.9 Pneumonia, unspecified organism (principal); N17.0 Acute kidney failure with tubular necrosis; R65.10 Systemic inflammatory response syndrome (SIRS) of non-infectious origin without acute organ dysfunction; I13.0 Hypertensive heart and chronic kidney disease with heart failure and stage 1 through stage 4 chronic kidney disease, or unspecified chronic kidney disease; I50.9 Heart failure, unspecified; D72.829 Elevated white blood cell count, unspecified; E86.0 Dehydration; N18.9 Chronic kidney disease, unspecified; E11.22 Type 2 diabetes mellitus with diabetic chronic kidney disease; M19.90 Unspecified osteoarthritis, unspecified site; Z82.49 Family history of ischemic heart disease and other diseases of the circulatory system; Z83.3 Family history of diabetes mellitus; Z79.899 Other long term (current) drug therapy
CPT/HCPCS: 36415; 71046; 80048; 80053; 80061; 81001; 82140; 82550; 82553; 82962; 84484; 85007; 85025; 85027; 85379; 85610; 85730; 87040; 93005; 93010; G0378; J0456; J0696; J1644; J7030; J7050